=== PATIENT | male | born 1990 | race Caucasian/White ===

== ENCOUNTER 2016-05-20 19:02 | Emergency (ER) | payer BC ==
[~2016-05-20] VITALS: Ht 175.3 cm; Wt 126.1 kg
[2016-05-20 19:02] VITALS: BP 156/91
--- NOTE | 2016-05-20 19:02 | NUR ---
Patient was BIBA and taken to bed 02 via gurney per EMS.
--- NOTE | 2016-05-20 19:22 | NUR ---
PT IS 26/M BIBA TO ED WITH C/O SEIZURE WHILE AT GYM, UNWITNESSED. ORAL TRAUMA AND ABRASION TO LEFT EYE. PT STATES MED HX OF SEIZURES. DENIES N/V/D; SKIN IS PINK/WARM/DRY; AAOX4 WITH EVEN AND STEADY GAIT; LUNGS CLEAR BL; HR EVEN AND REGULAR; PT DENIES ANY FEVER, CP, SOB, OR COUGH AT THIS TIME; PATIENT STATES PAIN OF 5/10 AT THIS TIME; VSS; PATIENT POSITIONED FOR COMFORT; HOB ELEVATED; BEDRAILS UP X2; BED DOWN. ER MD MADE AWARE OF PT STATUS.
[2016-05-20] MEDS ORDERED: ACETAMINOPHEN EXTRA STRENGTH 500 MG TAB PO ONE (19:25)
[2016-05-20] MEDS ORDERED: LORazepam 1 MG TAB PO ONE (19:25)
[2016-05-20 20:55] VITALS: BP 122/76
--- NOTE | 2016-05-20 20:55 | NUR ---
Patient discharged with v/s stable. Written and verbal after care instructions given and explained. Patient alert, oriented and verbalized understanding of instructions. Ambulatory with steady gait. All questions addressed prior to discharge. ID band removed. Patient advised to follow up with PMD. Rx of ACETAMINOPHIN given. Patient educated on indication of medication including possible reaction and side effects. Opportunity to ask questions provided and answered.
== END 2016-05-20 20:55 | disposition home or self-care (01) ==
LOC: MED 19:02
DX: R56.9 Unspecified convulsions (principal)

== ENCOUNTER 2023-10-29 19:45 | Emergency (ER) | payer BC, MEDICAID ==
[~2023-10-29] VITALS: Ht 177.8 cm; Wt 145.1 kg
[2023-10-29 19:53] VITALS: BP 165/87; PULSE 150; RESP 18; TEMP 97.2; O2SAT 100
[2023-10-29 20:27] LABS: BASOPHILS # (AUTO) 0.1 K/uL (0.00-0.22); BASOPHILS % (AUTO) 0.3 % (0.0-2.0); EOSINOPHILS # (AUTO) 0.5 K/uL (0-0.4); EOSINOPHILS % (AUTO) 2.6 % (0.0-4.0); HEMOGLOBIN 17.2 g/dL (12.0-18.0); LYMPHOCYTES % (AUTO) 21.3 % (20.5-51.1); MEAN CORPUSCULAR HEMOGLOBIN 30 pg (27-31); MEAN CORPUSCULAR HGB CONC 32 g/dL (33-37); MEAN CORPUSCULAR VOLUME 92.7 fL (80-94); MONOCYTES # (AUTO) 1.4 K/uL (0.8-1.0); MONOCYTES % (AUTO) 7.3 % (1.7-9.3); NEUTROPHILS # (AUTO) 12.9 K/uL (1.8-7.7); NEUTROPHILS % (AUTO) 68.5 % (42.2-75.2); PLATELET COUNT (AUTO) 520 K/uL (140-450); RED BLOOD CELL COUNT(AUTO) 5.71 MIL/uL (4.20-6.10); RED CELL DISTRIBUTION WIDTH 13.2 % (11.6-13.7); WHITE BLOOD COUNT (AUTO) 18.8 K/uL (4.8-10.8)
[2023-10-29] MEDS: NACL 0.9% 1,000 ML IV ONE (20:27)
[2023-10-29 20:42] LABS: ANION GAP 19.9 (8-16); CALCIUM 9.8 mg/dL (8.5-10.1); CARBON DIOXIDE 23.1 mmol/L (21-32); CREATININE 1.2 mg/dL (0.6-1.3)
[2023-10-29] MEDS: KETOROLAC 30 MG/ML VIAL IVP ONE (21:21)
[2023-10-29] MEDS ORDERED: IBUP-2213 PO (21:25)
[2023-10-29] MEDS ORDERED: ONDA8TAB87 PO (21:25)
[2023-10-29 22:50] VITALS: BP 148/79; PULSE 108; RESP 20; TEMP 98; O2SAT 96
== END 2023-10-29 22:50 | disposition home or self-care (01) ==
LOC: MED 19:45
DX: R56.9 Unspecified convulsions (principal); R11.2 Nausea with vomiting, unspecified; R51.9 Headache, unspecified; I10 Essential (primary) hypertension
CPT/HCPCS: 36415; 80048; 85025; 93005; 96361; 96374; 99284; J1885